=== PATIENT | male | born 1990 | race Caucasian/White ===

== ENCOUNTER 2018-11-24 22:13 | Emergency (ER) | payer MEDICAID, OTHER ==
[2018-11-24] MEDS ORDERED: IPRATROPIUM/ALBUTEROL 3 ML DEYVIAL ONE (22:19)
[2018-11-24] MEDS ORDERED: NS 1,000 ML IV ONE (22:19)
--- NOTE | 2018-11-24 22:19 | EDPHY ---
H & P Stated Complaint: Asthma attack, difficulty breathing Time Seen by Provider: 11/24/18 22:19 HPI/ROS: HPI CHIEF COMPLAINT: Difficulty breathing. HISTORY OF PRESENT ILLNESS: Patient is a 28-year-old male, history of asthma he presents emergency room stating that he short of breath. He states suddenly this happened him approximately 30 min ago. He states he was standing in the kitchen making some snacks and all the sudden got short of breath. He states he took 2 puffs of his rescue inhaler felt a little bit better and came to the emergency room. He arrives to the emergency room in he is in no acute distress. He has clear lungs bilaterally. Good air movement. No significant wheezing. Does have a bronchitic cough on exam. He does smoke marijuana. Denies chest pain. Past Medical History: Asthma Past Surgical History: Denies recent surgery Social History: Denies daily use of tobacco or alcohol. Frequent marijuana use. Family History: Noncontributory ROS REVIEW OF SYSTEMS: 10 Systems were reviewed and negative with the exception of the elements mentioned in the history of present illness. Exam Constitutional triage nursing summary reviewed, vital signs reviewed, awake/ alert. Eyes normal conjunctivae and sclera, EOMI, PERRLA. HENT normal inspection, atraumatic, moist mucus membranes, no epistaxis, neck supple/ no meningismus, no raccoon eyes. Respiratory clear breath sounds bilaterally. Good air movement. No significant wheezing. Bronchitic cough on exam. Cardiovascular rate normal, regular rhythm, no murmur, no edema, distal pulses normal. Gastrointestinal soft, non-tender, no rebound, no guarding, normal bowel sounds, no distension, no pulsatile mass. Genitourinary no CVA tenderness. Musculoskeletal no midline vertebral tenderness, full range of motion, no calf swelling, no tenderness of extremities, no meningismus, good pulses, neurovascularly intact. Skin pink, warm, & dry, no rash, skin atraumatic. Neurologic awake, alert and oriented x 3, AAOx3, moves all 4 extremities equally, motor intact, sensory intact, CN II-XII intact, normal cerebellar, normal vision, normal speech. Psychiatric normal mood/affect. Heme/Lymph/Immune no lymphadenopathy. Differential Diagnosis: Includes but is not limited to in a particular order reactive airway disease, URI, viral illness, viral bronchitis, pneumonia, pneumothorax, PE Medical Decision Making: Plan for this patient he is not really significantly wheezing here however will establish an IV, IV fluid bolus, IV Solu-Medrol, DuoNeb breathing treatment, chest x-ray, EKG, basic labs, troponin, D-dimer and re-evaluate. Re-evaluation: EKG interpretation by me on record in [facility] system. Impression time of EKG 2245, sinus rhythm rate of 56 without any signs of acute ischemia. ED x-ray chest one view shows airway disease. No pneumothorax or pneumonia D-dimer negative Troponin negative EKG nonischemic Chest x-ray shows airway disease No pneumothorax or pneumonia. 0217: Re-examination at this time patient resting comfortably. States he feels much better after DuoNeb breathing treatment. He received IV fluids, IV Solu-Medrol and DuoNeb breathing treatment. He states he is feeling much better. His chest x-ray shows no pneumonia or pneumothorax EKG is nonischemic he had no chest pain Troponin negative D-dimer negative. Patient has been monitored for 4 hr in the emergency room is requesting discharge. His room air saturation is 97%. On re-examination of his lungs they move air very well, no wheezing, no stridor, no trouble breathing. Plan for prednisone for the next 5 days, new albuterol inhaler. Additionally we discussed return precautions he understands return to the emergency room if develops worsening shortness of breath, fever, vomiting, not doing well. Source: Patient - Personal History Current Tetanus Diphtheria and Acellular Pertussis (TDAP): Unsure - Medical/Surgical History Hx Asthma: Yes Hx Chronic Respiratory Disease: No Hx Diabetes: No Hx Cardiac Disease: No Hx Renal Disease: No Hx Cirrhosis: No Hx Alcoholism: No Hx HIV/AIDS: No Hx Splenectomy or Spleen Trauma: No Other PMH: PSH: B thumbs;. PMH: asthma; - Social History Smoking Status: Light smoker Constitutional: Initial Vital Signs Temperature (C) 36.5 C 11/24/18 22:13 Heart Rate 77 11/24/18 22:13 Respiratory Rate 19 11/24/18 22:13 Blood Pressure 118/78 11/24/18 22:13 O2 Sat (%) 90 L 11/24/18 22:13 O2 Delivery Mode Room Air O2 (L/minute) 3 Allergies/Adverse Reactions: No Known Allergies Allergy (Unverified 11/24/18 22:13) Home Medications: Medication Instructions Recorded ALBUTEROL SULFATE 06/26/15 Advair 100/50 (RX) 06/26/15 Hydrocodone/APAP 5325 [[place] 1 tab PO Q6H #10 tab 06/26/15 5/325] Albuterol [Proventil Inhaler HFA 1 - 2 puffs IH Q4H #1 mdi 11/25/18 (*)] predniSONE 60 mg PO DAILY #15 tab 11/25/18 Medical Decision Making - Diagnostics Imaging Results: Imaging Impressions Chest X-Ray 11/24/18 22:19 Impression: Findings most consistent with airways disease are noted with no superimposed acute abnormality identified. - Data Points Laboratory Results: Laboratory Results 11/24/18 22:40 11/24/18 22:40 11/24/18 11/24/18 11/24/18 22:47 22:40 22:40 WBC RBC Hgb Hct MCV MCH MCHC RDW Plt Count MPV Neut % (Auto) Lymph % (Auto) Woods % (Auto) Eos % (Auto) Baso % (Auto) Nucleat RBC Rel Count Absolute Neuts (auto) Absolute Lymphs (auto) Absolute Monos (auto) Absolute Eos (auto) Absolute Basos (auto) Absolute Nucleated RBC Immature Gran % Immature Gran # D-Dimer 0.38 ug/mLFEU ug/mLFEU (0.00-0.50) Sodium 137 mEq/L mEq/L (135-145) Potassium 4.1 mEq/L mEq/L (3.5-5.2) Chloride 103 mEq/L mEq/L (97-110) Carbon Dioxide 24 mEq/l mEq/l (22-31) Anion Gap 10 mEq/L mEq/L (6-14) BUN 28 mg/dL H mg/dL (7-23) Creatinine 1.1 mg/dL mg/dL (0.7-1.3) Estimated GFR > 60 Glucose 94 mg/dL mg/dL (70-100) Calcium 10.2 mg/dL mg/dL (8.5-10.4) POC Troponin I 0.02 ng/mL ng/mL (0.00-0.08) 11/24/18 22:40 WBC 5.36 10^3/uL 10^3/uL (3.80-9.50) RBC 4.81 10^6/uL 10^6/uL (4.40-6.38) Hgb 15.3 g/dL g/dL (13.7-17.5) Hct 44.3 % % (40.0-51.0) MCV 92.1 fL fL (81.5-99.8) MCH 31.8 pg pg (27.9-34.1) MCHC 34.5 g/dL g/dL (32.4-36.7) RDW 12.3 % % (11.5-15.2) Plt Count 266 10^3/uL 10^3/uL (150-400) MPV 10.2 fL fL (8.7-11.7) Neut % (Auto) 38.6 % L % (39.3-74.2) Lymph % (Auto) 48.3 % H % (15.0-45.0) Woods % (Auto) 7.5 % % (4.5-13.0) Eos % (Auto) 4.7 % % (0.6-7.6) Baso % (Auto) 0.9 % % (0.3-1.7) Nucleat RBC Rel Count 0.0 % % (0.0-0.2) Absolute Neuts (auto) 2.07 10^3/uL 10^3/uL (1.70-6.50) Absolute Lymphs (auto) 2.59 10^3/uL 10^3/uL (1.00-3.00) Absolute Monos (auto) 0.40 10^3/uL 10^3/uL (0.30-0.80) Absolute Eos (auto) 0.25 10^3/uL 10^3/uL (0.03-0.40) Absolute Basos (auto) 0.05 10^3/uL 10^3/uL (0.02-0.10) Absolute Nucleated RBC 0.00 10^3/uL 10^3/uL (0-0.01) Immature Gran % 0.0 % % (0.0-1.1) Immature Gran # 0.00 10^3/uL 10^3/uL (0.00-0.10) D-Dimer Sodium Potassium Chloride Carbon Dioxide Anion Gap BUN Creatinine Estimated GFR Glucose Calcium POC Troponin I Medications Given: Discontinued Medications Albuterol/Ipratropium (Duoneb) 3 ml IH EDNOW ONE Stop: 11/24/18 22:26 Last Admin: 11/24/18 22:30 Dose: 3 ml Sodium Chloride (Ns) 1,000 mls @ 0 mls/hr IV EDNOW ONE; Wide Open PRN Reason: Protocol Stop: 11/24/18 22:20 Last Admin: 11/24/18 22:47 Dose: 1,000 mls Methylprednisolone Sodium Succinate (Solu-Medrol) 125 mg IVP EDNOW ONE Stop: 11/24/18 22:26 Last Admin: 11/24/18 22:48 Dose: 125 mg Point of Care Test Results: Chemistry 11/24/18 22:47 POC Troponin I 0.02 ng/mL ng/mL (0.00-0.08) Departure - Departure Disposition: Home, Routine, Self-Care Clinical Impression: Acute bronchitis Qualifiers: Bronchitis organism: other organism Qualified Code(s): J20.8 - Acute bronchitis due to other specified organisms Exacerbation of asthma Qualifiers: Asthma severity: mild Asthma persistence: intermittent Qualified Code(s): J45.21 - Mild intermittent asthma with (acute) exacerbation Condition: Good Instructions: Asthma (ED) Additional Instructions: 1. Stay well-hydrated drink lots of fluids. 2. Prednisone as prescribed 3. Albuterol inhaler 2 puffs every 4 hr as needed 4. Return to the emergency room if you are worse. 5. Do not smoke. Referrals: Babar John MD [Primary Care Provider] - As per Instructions Prescriptions: Albuterol [Proventil Inhaler HFA (*)] 1 - 2 puffs IH Q4H #1 mdi predniSONE 60 mg PO DAILY #15 tab
[2018-11-24] MEDS ORDERED: methylPREDNISolone SOD SUCC 125 MG/2 ML VIAL IVP ONE (22:25)
[2018-11-24] MEDS ORDERED: IPRATROPIUM/ALBUTEROL 3 ML DEYVIAL IH ONE (22:25)
[2018-11-24 22:55] LABS: PLATELET COUNT 266 10^3/uL (150-400)
[2018-11-25 02:44] VITALS: BP 107/62
--- NOTE | 2018-11-28 08:23 | CPEKG ---
Test Reason : OPEN Blood Pressure : / mmHG Vent. Rate : 056 BPM Atrial Rate : 056 BPM P-R Int : 138 ms QRS Dur : 087 ms QT Int : 424 ms P-R-T Axes : 042 073 058 degrees QTc Int : 410 ms Sinus rhythm Confirmed by Babar Barnett ([id number]) on 11/28/2018 8:23:13 AM Referred By: aBbar Barnett Confirmed By:Babar Barnett
== END 2018-11-25 02:25 | disposition home or self-care (01) ==
DX: J20.8 Acute bronchitis due to other specified organisms (principal); J45.21 Mild intermittent asthma with (acute) exacerbation; E86.9 Volume depletion, unspecified
CPT/HCPCS: 84484-ER; 96374; J2930